=== PATIENT | female | born 2005 | race Caucasian/White ===

== ENCOUNTER 2025-01-08 19:48 | Outpatient (REF) | payer BC, SELFPAY ==
--- OUTSIDE RECORDS SUMMARY | 2025-01-08 14:00 | XMS_ITS | Encounter Summary ---
Author Organization [facility] Address [address] [place] [place] [address] Care Team Providers Care Domestic Freight Forwarder Name Role Phone Hazel Liu MD Primary Care Provider [phone] Reason for Visit * Reason Comments Gynecologic Exam Encounter Details Date Type Department Care Team (Latest Contact Info) Description 01/08/2025 2:00 PM EDT Procedure Visit [facility] [address] [place] [address] Justina Guevara, TRIAL COURT JUDGE [address] [place] [address] Well woman exam with routine gynecological exam Social History Tobacco Use Types Packs/Day Years Used Date Smoking Tobacco: Never Smokeless Tobacco: Never Alcohol Use Standard Drinks/Week Comments Yes 0 (1 standard drink = 0.6 oz pur e alcohol) B1300 Health Literacy Answer Date Recor ded How often do you need to hav e someone help you when you read instructions, pamphlets, or other written material from your doctor or pharmacy? Never 12/10/2024 Humiliation, Afraid, Rape, and Kick questionnair e Answer Date Recorded Within the last year, have y ou been afraid of your partner or ex-partner? No 12/10/2024 Within the last year, have y ou been humiliated or emotionally abused in other ways by your partner or ex-partner? No Within the last year, have y ou been kicked, hit, slapped, or otherwise physically hurt by your partner or ex-partner? No 12/10/2024 Within the last year, have y ou been raped or forced to have any kind of sexual activity by your partner or ex-partner? No 12/10/2024 Social Connection and Isolat ion Panel [NHANES] Answer Date Recorded In a typical week, how many times do you talk on the phone with family, friends, or neighbors? More than three times a week 12/10/2024 How often do you get togethe r with friends or relatives? Once a week 12/10/2024 How often do you attend chur or hinduism services? Never 12/10/2024 Do you belong to any clubs o r organizations such as orthodox groups, unions, fraternal or athletic groups, or school groups? No 12/10/2024 How often do you attend meet ings of the clubs or organizations you belong to? Patient declined 12/10/2024 Are you , , di vorced, , never , or living with a partner? Never 12/10/2024 AUDIT-C Answer Date Recorded Q1: How often do you have a drink containing alc ohol? Monthly or less 12/17/2024 Q2: How many drinks containi ng alcohol do you have on a typical day when you are drinking? 1 or 2 12/17/2024 Q3: How often do you have si x or more drinks on one occasion? Never 12/17/2024 Overall Financial Resource Strain (CARDIA) Answe r Date Recorded How hard is it for you to pa y for the very basics like food, housing, medical care, and heating? Not very hard 12/10/2024 PHQ-2 Answer Date Recorded Patient Health Questionnaire-2 Score 0 12/17/2024 [facility] - Occupational Stress Questionnaire Answer Date Recorded Do you feel stress - tense, restless, nervous, or anxious, or unable to sleep at night because your mind is troubled all the time - these days? Only a little 12/10/2024 Exercise Vital Sign Answer Date Recorde d On average, how many days pe r week do you engage in moderate to strenuous exercise (like a brisk walk)? 4 days 12/10/2024 On average, how many minutes do you engage in exercise at this level? 20 min 12/10/2024 Hunger Vital Sign Answer Date Recorded Within the past 12 months, y ou worried that your food would run out before you got the money to buy more. Never true 12/11/19 25 Within the past 12 months, t he food you bought just didn't last and you didn't have money to get more. Never true 12/10/2024 PRAPARE - Transportation Answer Date Re corded In the past 12 months, has l ack of transportation kept you from medical appointments or from getting medications? No 11/25 In the past 12 months, has l ack of transportation kept you from meetings, work, or from getting things needed for daily living? No 12/10/2024 Housing Stability Vital Sign Answer Carlos e Recorded In the last 12 months, was t here a time when you were not able to pay the mortgage or rent on time? No 12/26/2022 Number of Places Lived in the Last Year Not on f ile 12/26/2022 In the last 12 months, was t here a time when you did not have a steady place to sleep or slept in a care home (including now)? No 12/26/2022 Housing Stability Vital Sign Answer Carlos e Recorded In the last 12 months, was t here a time when you were not able to pay the mortgage or rent on time? No 12/10/2024 In the past 12 months, how m any times have you moved where you were living? 2 12/10/2024 At any time in the past 12 m [facility], were you homeless or living in a care home (including now)? No 12/10/2024 Comments No Sex and Gender Information Value Date Recorded Sex Assigned at Female 12/26/2022 2:41 PM EDT Legal Sex Female 6:51 PM EDT Gender Identity Female 12/26/2022 2:41 PM EDT Sexual Orientation Not on file documented as of this encounter Last Filed Vital Signs Vital Sign Reading Time Taken Comments Blood Pressure 130/80 01/08/2025 1:55 PM EDT Pulse - - Temperature - - Respiratory Rate - - Oxygen Saturation - - Inhaled Oxygen Concentration - - Weight 96.2 kg (212 lb) 01/08/2025 1:55 PM EDT Height 170.2 cm (5' 7 ) 01/08/2025 1:55 PM EDT Body Mass Index 33.2 01/08/2025 1:55 PM EDT documented in this encounter Progress Notes * Rachel Chowdhury MA - 01/08/2025 2:00 PM EDT Reason for Appointment: Patient ID: Betty Demarco is a 19 y.o. female who presents for Gynecologic Exam Patient presents today for Annual Exam. MEDICATIONS No current outpatient medications ALLERGIES No Known Allergies PROBLEMS Active Ambulatory Problems Diagnosis Date Noted Low TSH level 01/01/2023 Vitamin D deficiency 01/01/2023 Obesity (BMI 30-39.9) 01/02/2023 Acanthosis nigricans 01/02/2023 Resolved Ambulatory Problems Diagnosis Date Noted Recurrent epistaxis 01/02/2023 Past Medical History: Diagnosis Date Asthma (HCC) HISTORY PAST MEDICAL HISTORY SOCIAL HISTORY Past Medical History: Diagnosis Date Asthma (HCC) Recurrent epistaxis 01/02/2023 Social History Tobacco Use Smoking status: Never Smokeless tobacco: Never Vaping Use Vaping status: Never Used Substance Use Topics Alcohol use: Yes Drug use: Not Currently FAMILY HISTORY Family History Problem Relation Name Age of Onset Allergies Mother Melanoma Maternal Grandfather SURGICAL HISTORY Past Surgical History: Procedure Laterality Date WISDOM TOOTH EXTRACTION 2021 REVIEW OF SYSTEMS Review of Systems: Review of Systems All other systems reviewed and are negative. OBJECTIVE Objective: Physical Exam Constitutional: Appearance: Normal appearance. She is well-developed. Genitourinary: Vulva normal. Cardiovascular: Rate and Rhythm: Normal rate and regular rhythm. Pulmonary: Effort: Pulmonary effort is normal. Breath sounds: Normal breath sounds. Abdominal: General: Bowel sounds are normal. There is no distension. Palpations: Abdomen is soft. Tenderness: There is no abdominal tenderness. There is no guarding or rebound. Musculoskeletal: General: No swelling. Normal range of motion. Right lower leg: No edema. Left lower leg: No edema. Neurological: Mental Status: She is alert and oriented to person, place, and time. Skin: General: Skin is warm and dry. Psychiatric: Mood and Affect: Mood normal. Behavior: Behavior normal. Vitals and nursing note reviewed. Exam conducted with a network operations center engineer present. Vitals: Estimated body mass index is 33.49 kg/m?? as calculated from the following: Height as of 12/17/24: 5' 7 . Weight as of 12/17/24: 213 lb 12.8 oz. BP: No LMP recorded. ASSESSMENT & PLAN ICD-10-CM 1. Well woman exam with routine gynecological exam Z01.419 Pap Smear Annual Exam: Patient presents today for an annual exam. Patient states she is doing well and has no complaints. Pap was obtained without difficulty. No orders of the defined types were placed in this encounter. Follow Up: Patient is to return in one year for annual unless needed otherwise. Documented by Rachel Chowdhury MA on behalf of: Justina Guevara NP documented in this encounter Plan of Treatment Upcoming Encounters Date Type Department Care Team (Late st Contact Info) Description 05/12/2025 8:30 AM EST Office Visit [facility] [address] [place] [address] Taylor Redd MD [address] [place] [address] Scheduled Orders Name Type Priority Associated Diagnoses Orde r Schedule Pap Smear Pathology and Cytology Routine Well woman exam with routine gynecological exam Ordered: 01/08/2025 documented as of this encounter Visit Diagnoses Diagnosis Well woman exam with routine gynecological exam Routine gynecological examination documented in this encounter Care Teams Domestic Freight Forwarder Relationship Specialty Start Date End Date Hazel Liu MD [address] [place] [address] [address] [place] [address] PCP - General 12/26/22 documented as of this encounter
--- OUTSIDE RECORDS SUMMARY | 2025-01-08 15:20 | XMS_ITS | Encounter Summary ---
Author Organization [facility] Address [address] [place] [address] Care Team Providers Care Drum Drier Operator Name Role Phone Hazel Liu MD Primary Care Provider [phone] Reason for Visit * Reason Comments Suspicious Skin Lesion * Consultation (Routine) - Closed Specialty Diagnoses / Procedures Referred By Contmiley t Referred To Contact Dermatology Diagnoses Neoplasm of uncertain behavior of skin Procedures UT OFFICE/OUTPATIENT [facility] 60 MINUTES Dodie Kauffman PA [address] [place] [address] Phone: tel: fax: Katelynn Mccain APRN-HISTORIOGRAPHY TEACHER [address] [place] [address] Phone: tel: fax: Referral ID Status Reason Start Date Expiration Date V isits Requested Visits Authorized [id number] Closed Specialty Services Required 12/17/2024 06/15/2025 1 1 Encounter Details Date Type Department Care Team (Latest Contact Info) Description 01/08/2025 3:20 PM EDT Office Visit [facility] [address] [place] [address] Taylor Redd MD [address] [place] [address] Other seborrheic dermatitis (Primary Dx); Post-inflammatory hyperpigmentation Social History Tobacco Use Types Packs/Day Years [...] How often do you attend chur or church services? Never 12/10/2024 Do you belong to any clubs o r organizations such as presybeterian groups, unions, fraternal or athletic groups, or [...] Recorded Patient Health Questionnaire-2 Score 0 12/17/2024 [facility] [place] of Occupat ional Health - Occupational Stress Questionnaire Answer Date [...] place to sleep or slept in a nursing home (including now)? No 12/26/2022 Housing Stability [...] any time in the past 12 m [facility], were you homeless or living in a nursing home (including now)? No 12/10/2024 Comments No Sex and Gender Information Value Date Recorded Sex Assigned at Female 12/26/2022 2:41 PM EDT Legal Sex Female 6:51 PM EDT Gender Identity Female 12/26/2022 2:41 PM EDT Sexual Orientation Not on file documented as of this encounter Progress Notes * Taylor Redd MD - 01/08/2025 3:20 PM EDT Images from the original note were not included. Lesions: Location: right cheek Duration: 4 weeks Quality: denies pain, denies itch Associated symptoms: bump appeared, flattened into a dark spot Treatments: none, patient concerned maternal grandfather had melanoma. New patient, referred by JENNIFER Obregon All pertinent medical history, medications, and allergies were reviewed. General Exam: alert, oriented to person, place, and time, normal affect, well appearing Unaccompanied A focused exam completed based on patient reported problems, see below: Skin Exam 1. OTHER SEBORRHEIC DERMATITIS Scalp Erythema and scale. Flaring today Discussed that seborrheic dermatitis is a chronic condition that can be controlled but not cured. ciclopirox shampoo 2-3 times weekly. Leave on 5-10 min, then rinse. Notify office if flaring despite treatment. Ciclopirox 1 % shampoo - Scalp Lather on wet hair, leave on 5 min, rinse 2-3 x week, 30 day supply 2. POST-INFLAMMATORY HYPERPIGMENTATION Right Buccal Cheek Post-inflammatory erythema, no concerning features today. Counseled on the occurrence of post-inflammatory erythema. Related Procedures Ambulatory referral to Dermatology Next Visit: prn for any new/changing lesions, 4-6 weeks if failing to improve documented in this encounter Plan of Treatment Upcoming Encounters Date Type Department Care Team (Late st Contact Info) Description 05/12/2025 8:30 AM EST Office Visit [facility] [address] [place] [address] Taylor Redd MD [address] [place] [address] documented as of this encounter Visit Diagnoses Diagnosis Other seborrheic dermatitis- Primary Post-inflammatory hyperpigmentation Dyschromia, unspecified documented in this encounter Care Teams Drum Drier Operator Relationship Specialty Start Date End Date Hazel Liu MD [address] [place] [address] [address] [place] [address] PCP - General 12/26/22 documented as of this encounter
--- OUTSIDE RECORDS SUMMARY | 2025-01-08 19:55 | XMS_ITS | Encounter Summary ---
Author Organization [facility] Address [address] [place] [address] Care Team Providers Care Assessment Clinician Name Role Phone Hazel Liu MD Primary Care Provider Encounter Details Date Type Department Care Team (Late st Contact Info) Description 12/18/2024 Abstract [facility] [address] [address] Iggy Richards DO [address] [place] [address] Social History Tobacco Use Types Packs/Day Years [...] How often do you attend chur or moravian services? Never 12/10/2024 Do you belong to any clubs o r organizations such as scientologist groups, unions, fraternal or athletic groups, or [...] Recorded Patient Health Questionnaire-2 Score 0 12/17/2024 [facility] of Occupat ional Health - Occupational Stress [...] place to sleep or slept in a fci (including now)? No 12/26/2022 Housing Stability Vital Sign Answer Carlos e Recorded In the last 12 months, was t here a time when you were not able to pay the mortgage or rent on time? No 12/10/2024 In the past 12 months, how m any times have you moved where you were living? 2 12/10/2024 At any time in the past 12 m onths, were you homeless or living in a fci (including now)? No 12/10/2024 Comments Unknown Sex and Gender Information Value Date Recorded Sex Assigned at Female 12/26/2022 2:41 PM EDT Legal Sex Female 6:51 PM EDT Gender Identity Female 12/26/2022 2:41 PM EDT Sexual Orientation Not on file documented as of this encounter Plan of Treatment Upcoming Encounters Date Type Department Care Team (Late st Contact Info) Description 05/12/2025 8:30 AM EST Office Visit [facility] [address] [place] [phone] Taylor Redd MD [address] [place] [address] documented as of this encounter Visit Diagnoses Not on filedocumented in this encounter Care Teams Assessment Clinician Relationship Specialty Start Date End Date Hazel Liu MD [address] [address] PCP - General 12/26/22 documented as of this encounter
--- OUTSIDE RECORDS SUMMARY | 2025-01-08 19:55 | XMS_ITS | Encounter Summary ---
Author Organization [facility] Address [address] [facility] [place] [address] Care Team Providers Care Net Mvc Developer Name Role Phone Hazel Liu MD Primary Care Provider [phone] Encounter Details Date Type Department Care Team (Late st Contact Info) Description 01/08/2025 Bamboo flowsheet [facility] [address] [place] [address] Justina Guevara, BOB [address] [place] [address] Social History Tobacco Use Types Packs/Day Years [...] How often do you attend chur or latter day services? Never 12/10/2024 Do you belong to any clubs o r organizations such as temple groups, unions, fraternal or athletic groups, or [...] Recorded Patient Health Questionnaire-2 Score 0 12/17/2024 [facility] of Occupat ional Health - Occupational Stress [...] place to sleep or slept in a longterm (including now)? No 12/26/2022 Housing Stability Vital Sign Answer Carlos e Recorded In the last 12 months, was t here a time when you were not able to pay the mortgage or rent on time? No 12/10/2024 In the past 12 months, how m any times have you moved where you were living? 2 12/10/2024 At any time in the past 12 m [facility], were you homeless or living in a longterm (including now)? No 12/10/2024 Comments No Sex [...] Description 05/12/2025 8:30 AM EST Office Visit [facility] [address] [place] [address] Taylor Redd MD [address] [place] [address] documented as of this encounter Visit Diagnoses Not on filedocumented in this encounter Care Teams Net Mvc Developer Relationship Specialty Start Date End Date Hazel Liu MD [address] [facility] [address] [place] [address] PCP - General 12/26/22 documented as of this encounter
--- OUTSIDE RECORDS SUMMARY | 2025-01-08 19:55 | XMS_ITS | Encounter Summary ---
Author Organization [facility] Address [address] [place] [address] [place] [address] Care Team Providers Care Abstracter Name Role Phone Hazel Liu MD Primary Care Provider Encounter Details Date Type Department Care Team (Latest Contact Info) Description 01/07/2025 Travel Social History Tobacco Use Types Packs/Day Years [...] 12/10/2024 How often do you attend chur ch or druze services? Never 12/10/2024 Do you belong to any clubs o r organizations such as religion groups, unions, fraternal or athletic groups, or [...] Recorded Patient Health Questionnaire-2 Score 0 12/17/2024 [facility] of Occupat ional Health - Occupational Stress [...] place to sleep or slept in a senior living (including now)? No 12/26/2022 Housing Stability Vital Sign Answer Carlos e Recorded In the last 12 months, was t here a time when you were not able to pay the mortgage or rent on time? No 12/10/2024 In the past 12 months, how m any times have you moved where you were living? 2 12/10/2024 At any time in the past 12 m [facility], were you homeless or living in a senior living (including now)? No 12/10/2024 Comments Unknown Sex [...] Dermatology [address] [place] [address] Taylor Redd MD [address] [place] [address] documented as of this encounter Visit Diagnoses Not on filedocumented in this encounter Care Teams Abstracter Relationship Specialty Start Date End Date Hazel Liu MD [address] [facility] [address] [place] [address] PCP - General 12/26/22 documented as of this encounter
--- OUTSIDE RECORDS SUMMARY | 2025-01-08 19:55 | XMS_ITS | Encounter Summary ---
Author Organization [facility] Address [address] [facility] [place] [address] Care Team Providers Care Evs Attendant Name Role Phone Haezl Liu MD Primary Care Provider [phone] Encounter Details Date Type Department Care Team (Late st Contact Info) Description 12/18/2024 Abstract [facility] [address] [facility] [address] [place] [address] Hazel Liu MD 112 [facility] [address] [place] [address] Social History Tobacco Use Types Packs/Day Years [...] How often do you attend chur or restorationism services? Never 12/10/2024 Do you belong to any clubs o r organizations such as lutheran groups, unions, fraternal or athletic groups, or [...] Recorded Patient Health Questionnaire-2 Score 0 12/17/2024 [facility] of Occupat ional Health - [...] place to sleep or slept in a long term (including now)? No 12/26/2022 Housing Stability Vital Sign Answer Carlos e Recorded In the last 12 months, was t here a time when you were not able to pay the mortgage or rent on time? No 12/10/2024 In the past 12 months, how m any times have you moved where you were living? 2 12/10/2024 At any time in the past 12 m [facility], were you homeless or living in a long term (including now)? No 12/10/2024 Comments Unknown Sex [...] Office Visit [facility] [address] [place] [address] Taylor Redd MD [address] [place] [address] documented as of this encounter Visit Diagnoses Not on filedocumented in this encounter Care Teams Evs Attendant Relationship Specialty Start Date End Date Hazel Liu MD [address] [address] PCP - General 12/26/22 documented as of this encounter
--- OUTSIDE RECORDS SUMMARY | 2025-01-08 19:55 | XMS_ITS | Encounter Summary ---
Author Organization [facility] Address [address] [place] [address] Care Team Providers Care Chief Operating Engineer Name Role Phone Hazel Liu MD Primary Care Provider [phone] Encounter Details Date Type Department Care Team (Latest Contact Info) Description 01/08/2025 Travel Social History Tobacco Use Types Packs/Day [...] often do you attend chur ch or mosque services? Never 12/10/2024 Do you belong to any clubs o r organizations such as quaker groups, unions, fraternal or athletic groups, or [...] Recorded Patient Health Questionnaire-2 Score 0 12/17/2024 [facility] of Occupat ional Health - Occupational Stress [...] place to sleep or slept in a [place] (including now)? No 12/26/2022 Housing Stability Vital [...] time in the past 12 m [facility], were you homeless or living in a [place] (including now)? No 12/10/2024 Comments No Sex [...] Dermatology [address] [place] [address] Taylor Redd MD [address] [place] [address] documented as of this encounter Visit Diagnoses Not on filedocumented in this encounter Care Teams Chief Operating Engineer Relationship Specialty Start Date End Date Hazel Liu MD 112 [facility] 110 [place] [address] PCP - General 12/26/22 documented as of this encounter
--- OUTSIDE RECORDS SUMMARY | 2025-01-08 19:55 | XMS_ITS | Clinical Summary ---
Author Organization [facility] Address [address] [place] [address] Care Team Providers Care Product Test Specialist Name Role Phone Hazel Liu MD Primary Care Provider [phone] Allergies No known active allergies Medications Ciclopirox 1 % shampooIndicati ons:Other seborrheic dermatitis Lather on wet hair, leave on 5 min, rinse 2-3 x week, 30 day supply 120 mL 11 5 Active scopolamine (Transderm-Scop ) 1 mg/72 hr patch 72 hour patchIndication s:Motion sickness, initial encounter Place 1 patch on the skin every 3rd (third) day 3 patch 4 12/18/19 25 Discontinu ed(Therapy completed) Active Problems Problem Noted Date Diagnosed Date Obesity (BMI 30-39.9) 01/02/2023 Acanthosis nigricans 01/02/2023 Low TSH level 01/01/2023 Vitamin D deficiency 01/01/2023 Resolved Problems Problem Noted Date Diagnosed Date Resolved Date Recurrent epistaxis 01/02/2023 12/18/19 25 Encounters Date Type Department Care Team Description 01/08/2025 3:20 PM EDT Office Visit [facility] [address] [place] [address] Taylor Redd MD Other seborrheic dermatitis (Primary Dx); Post-inflammatory hyperpigmentation 01/08/2025 2:00 PM EDT Procedure Visit [facility] [address] [place] [phone] Justina Guevara, BOB Well woman exam with routine gynecological exam 01/08/2025 Eddboo flowsheet [facility] [address] [place] [phone] Justina Guevara, BOB 01/08/2025 Travel 01/07/2025 Travel 12/18/2024 Abstract [facility] [address] [place] [address] Iggy Richards, 12/18/2024 Abstract [facility] [address] [place] [phone] Hazel Liu MD 12/17/2024 9:00 AM EDT Office Visit [facility] [address] [facility] [address] [place] [phone] Dodie Kauffman PA Wellness examination (Primary Dx); Screening for malignant neoplasm of cervix; Obesity (BMI 30-39.9); Vitamin D deficiency; Low TSH level; Acanthosis nigricans; Neoplasm of uncertain behavior of skin 12/17/2024 Travel 12/10/2024 Travel from Last 3 Months Immunizations Immunization Administration Dates Next Due DTaP 07/13/2004 DTaP / Hep B / IPV 2003,2003, 004 DTaP / IPV 09/09/2008 HPV 9-Valent 07/20/2016,11/15/2015 Hep A, ped/adol, 2 dose 07/20/2016,01/18/2016 Hep B, Adolescent or Pediatric 2003 Hib (PRP-T) 05/11/2004,2003,2003 ,2003 MMR 09/09/2008,05/11/2004 Meningococcal B, Omv 11/23/2020,10/21/2020 Meningococcal MCV4O 10/21/2020,11/15/2015 Pneumococcal Conjugate PCV 7 07/13/2004,12/16/19 04,2003,2003 Tdap 11/15/2015 Varicella 09/09/2008,02/19/2008 Family History Medical History Relation Name Comments Melanoma Maternal Grandfather Allergies Mother Relation Name Status Comments Brother Alive x2 Father Alive Maternal Grandfather Alive Mother Alive Social History Tobacco Use Types Packs/Day Years [...] often do you attend chur ch or temple services? Never 12/10/2024 Do you belong to any clubs o r organizations such as zoroastrianism groups, unions, fraternal or athletic groups, or [...] Recorded Patient Health Questionnaire-2 Score 0 12/17/2024 [facility] - Occupational Stress [...] place to sleep or slept in a penitentiary (including now)? No 12/26/2022 Housing Stability Vital [...] time in the past 12 m [facility], were you homeless or living in a penitentiary (including now)? No 12/10/2024 Comments No Sex and Gender Information Value Date Recorded Sex Assigned at Female 12/26/2022 2:41 PM EDT Legal Sex Female 6:51 PM EDT Gender Identity Female 12/26/2022 2:41 PM EDT Sexual Orientation Not on file Last Filed Vital Signs Vital Sign Reading Time Taken Comments Blood Pressure 130/80 01/08/2025 1:55 PM EDT Pulse 86 12/17/2024 8:54 AM EDT Temperature - - Respiratory Rate 16 12/17/2024 8:54 AM EDT Oxygen Saturation 98% 12/17/2024 8:54 AM EDT Inhaled Oxygen Concentration - - Weight 96.2 kg (212 lb) 01/08/2025 1:55 PM EDT Height 170.2 cm (5' 7 ) 01/08/2025 1:55 PM EDT Body Mass Index 33.2 01/08/2025 1:55 PM EDT Plan of Treatment Upcoming Encounters Date Type Department Care Team (Late st Contact Info) Description 05/12/2025 8:30 AM EST Office Visit [facility] [address] [place] [address] Taylor Redd MD [address] [place] [address] Health Maintenance Due Date Last Done Comments Influenza Vaccine (#1) 2025 03/28/2024 Insurance [employer] Care Teams Product Test Specialist Relationship Specialty Start Date End Date Hazel Liu MD [address] [facility] [address] [place] [address] PCP - General 12/26/22
[2025-01-12 18:12] LABS: Age Gdln ACOG Testing Note (.); IGP, rfx Aptima HPV ASCU Note (.)
== END 2025-01-08 19:49 | disposition home or self-care (01) ==
LOC: LAB 19:48
PROVIDERS: Visit Provider Nurse Practitioner Family
DX: Z01.419 Encounter for gynecological examination (general) (routine) without abnormal findings (principal)
CPT/HCPCS: 88175